=== PATIENT | female | born 1955 | race Caucasian/White ===

== ENCOUNTER → 2016-10-21 | Outpatient (CLI) | payer BC ==
[~2016-10-21] MED LIST: 3N1 COMMODE MC; ADV25050 INHALATION; ASPI-781 PO; ESCI10TA PO; ESTROGEN PATCH; MONT10TA21 PO; OXYC-481 PO; PROGESTERONE; TRAM50TA2 PO; WALK1EAC23 MC
--- NOTE | 2016-10-21 18:11 | RADRPT ---
PROCEDURE: XR Right hip and pelvis. CLINICAL INDICATION: Right hip pain and pelvic pain. TECHNIQUE: 3 views. Frontal pelvis. Frontal and lateral right hip. COMPARISON: 03/08/2016. 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 This appears satisfactory with no fracture, dislocation, or loosening. There are moderate degenerative changes of the right hip with osteophytes and joint space narrowing noted. There is no deformity. There are degenerative changes of the lower lumbar spine. There is no lytic or blastic lesion. There is no radiopaque foreign body. IMPRESSION: 1. Moderate degenerative changes of the right hip. 2. Satisfactory postoperative appearance of the left hip. RPTAT: QQ .Ki Lang MD, MD Date Time Electronically viewed and signed by .Ki Lang MD, on 10/21/2016 18:10 .R/
== END | disposition home or self-care (01) ==
LOC: HKI 15:29
PROVIDERS: ATTEND Orthopaedic Surgery
DX: M16.11 Unilateral primary osteoarthritis, right hip (principal); M25.551 Pain in right hip; Z96.642 Presence of left artificial hip joint
CPT/HCPCS: 73502; G0463